=== PATIENT | female | born 1960 | race Caucasian/White ===

== ENCOUNTER 2023-05-24 06:00 | Day surgery (SDC) | payer OTHER, MEDICARE ==
[2023-05-20 09:27] VITALS: BP 118/82
[~2023-05-24] VITALS: Ht 162.6 cm; Wt 81.8 kg
[~2023-05-24 06:00] MED LIST: ARMOUR THYROID30 MG PO; ARMOUR THYROID60 MG PO; ASPIR 8181 MG PO; ATENOLOL50 MG PO; BENTYL20 MG PO; CARAFATE1 GM PO; DILAUDID2 MG PO; FISH OIL 1,2001 EACH PO; FLONASE ALLERG9.9 ML; HYDROCHLOROTHIA25 MG PO; METFORMIN HCL500 MG PO; MULTIPLE VITAM1 EAC1 PO; OMEPRAZOLE20 MG PO; PROMETHAZINE HC25 M1 PO; PROVENTIL HFA6.7 GM INH; RED YEAST RICE600 MG PO; SPIRONOLACTONE1 EACH PO; SPIRONOLACTONE50 MG PO; TYLENOL 8 HOUR650 MG PO; VALIUM5 MG PO; VITAMIN B-12500 MC1 PO; VITAMIN D250000 UNIT PO; VITAMIN E400 UNI4 PO
[2023-05-24 06:15] VITALS: BP 116/82
[2023-05-24] MEDS ORDERED: HYDROCHLOROTH12.5 MG PO (06:21)
[2023-05-24] MEDS ORDERED: SPIRONOLACTONE25 MG PO (06:22)
--- NOTE | 2023-05-24 08:44 | NUR ---
05/24/23 0844 Nuris French 0817- PT ARRIVES TO PACU, SEMI BYRD POSITION, AWAKE AND ANSWERING QUESTIONS. DENIES PAIN OR NAUSEA AT THIS TIME. ALL MONITORS APPLIED. 0825- PT C/O SOME NAUSEA, UNABLE TO PULL MEDICATIONS FROM PYXIS DUE TO NO ACCOUNT. PHARMACY CONTACTED AND ADMITTING. PT HAS NO OTHER COMPLAINTS. 0835- UNABLE TO PULL MEDICATION AFTER CONTACTING BOTH PHARMACY AND ADMITTING. PT REPORTS NAUSEA WORSENING. ALCOHOL SWAB PROVIDED, HOB ELEVATED AND EMESIS BAG. CONTACTED PHARMACY TO BRING MEDICATION TO PACU. 0843- PT REPORTS NAUSEA IS IMPROVING AFTER MEDICATION. PT HAS EQUAL STRENGTH TO BLE AND NORMAL SENSATION FOR HER BASELINE. WILL CONTINUE TO MONITOR AND ASSESS ABILITY TO STAND.
[2023-05-24] MEDS ORDERED: DILAUDID2 MG PO (08:46)
[2023-05-24] MEDS ORDERED: MOTRIN IB200 MG PO (08:46)
[2023-05-24] MEDS ORDERED: TYLENOL EXTRA500 MG PO (08:46)
[2023-05-24 09:36] VITALS: BP 122/74
--- NOTE | 2023-05-25 11:13 | OR ---
[facility] [address], [place] [address] Signed DATE OF OPERATION: 05/24/2023 SURGEON: Melody Way MD PREOPERATIVE DIAGNOSIS: Symptomatic perianal skin nodules. POSTOPERATIVE DIAGNOSES: 1. Symptomatic perianal skin nodules. 2. Low-grade anal stenosis. PROCEDURES: 1. Exam under anesthesia. 2. Anal dilation (digital). 3. Excision of perianal nodules and intra-anal nodules. ANESTHESIA: Spinal (saddle block), Fortunato Matthews, HEALTH TECHNICIAN HEARING and local 10 mL of 0.25% Marcaine with epinephrine. INDICATIONS: This 63-year-old white woman is a patient of Alfonso Patino. She underwent excision of the left forearm soft tissue mass by me in the past. She is noted to have perianal nodules, which were problematic to her. Examination shows them to be not typical of condylomata, but definitely symptomatic for her and causing a fair amount of perianal hygiene problems. She does not have true hemorrhoidal changes at this point. She does have several areas of skin with blanching suggestive of previous similar nodules either with involution or spontaneous loss. She is admitted at this time to undergo exam under anesthesia and excision of the nodules as appropriate. The risk of bleeding, infection, postoperative perianal pain, and other unforeseen complications was reviewed in detail. She understands and wished to proceed. FINDINGS: She did have anal narrowing and some hypertrophy of the perianal muscles. The nodules were at the anal verge dominantly. There were areas of blanched skin a few centimeters from the anal area itself. 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 These were excised and passed for Pathology. DESCRIPTION OF PROCEDURE: Electronically Signed By: MELODY WAY MD 05/25/23 1113 PATIENT NAME: MARKOS RAZO OPERATIVE REPORT DATE OF : 56 REPORT #: [id number] PHYSICIAN: MELODY WAY MD PCP: ALFONSO PATINO PAC REPORT IS CONFIDENTIAL AND NOT TO BE RELEASED WITHOUT AUTHORIZATION [facility] [address], [place] [address] Signed The patient was brought to the operating room after undergoing saddle block anesthetic and placed in a prone leticia-knife position. Buttocks were taped apart. She received preoperative antibiotics. Sequential compression device stockings, but heparin was not administered. Perianal preparation was undertaken with a Betadine based solution. Sterile draping was undertaken. Close examination showed the nodules to be suggestive though not diagnostic of condylomata what they may represent other abnormalities. Digital examination showed relative anal stenosis. The sphincter muscle was relatively narrow and easy cracking of dried anal mucosa was noted. Two-finger dilation was ultimately undertaken carefully, so as to avoid muscular disruption or anything of that sort. Excision of the perianal lesions was undertaken dominant with electrocautery. Ablation and simple excision was undertaken. Hemostasis was assured with electrocautery. A 10 mL of 0.25% Marcaine with epinephrine was injected locally. A rolled Gelfoam with bacitracin was applied and insinuated into the anal canal to assist with hemostasis and likely with some kyree-operative analgesia. A peripad was applied. She was returned to the supine position and taken to the recovery room in good condition, having suffered no known complication. MD ERIK Topete/KESHAWNL /[id number] cc: YANIRA Starr Copies: ~ Electronically Signed By: MELODY WAY MD 05/25/23 1113 PATIENT NAME: MARKOS RAZO OPERATIVE REPORT DATE OF : 56 REPORT #: [id number] PHYSICIAN: MELODY WAY MD PCP: ALFONSO PATINO PAC REPORT IS CONFIDENTIAL AND NOT TO BE RELEASED WITHOUT AUTHORIZATION
--- NOTE | 2023-05-25 15:36 | EKG ---
[facility] [address] [facility] [place], [place] [address] Signed Normal sinus rhythm Normal ECG No previous ECGs available Confirmed by JOSE TURNER MD ([id number]) on 05/25/2023 3:36:32 PM Electronically Signed By: JOSE TURNER 05/25/23 1536 PATIENT NAME: JERONIMO RAZOINE KWAME Electrocardiogram DATE OF : 56 PHYSICIAN: JOSE TURNER REPORT #: [id number] REPORT IS CONFIDENTIAL AND NOT TO BE RELEASED WITHOUT AUTHORIZATION
--- NOTE | 2023-05-28 17:29 | PATH ---
[facility] [address], [place] [address] Signed SPECIMEN(S): A PERIANAL SKIN LESIONS SPECIMEN SOURCE: A. PERIANAL SKIN LESIONS CLINICAL HISTORY: Excision of perianal skin tags. FINAL PATHOLOGIC DIAGNOSIS: Perianal skin lesions: - Squamous fibroepithelial polyps with reactive features, negative for high-grade dysplasia or malignancy. JVR:donya MICROSCOPIC EXAMINATION: Histologic sections of all submitted blocks are examined by light microscopy. These findings, together with the gross examination, support the pathologic diagnosis. GROSS DESCRIPTION: The specimen, labeled and designated "[place], perianal skin lesions," is received in formalin and consists of seven fragmented portions of cruz to red-brown skin/mucosa (0.3-1.8 cm in greatest dimension). The possible resection margins are inked blue and sectioned to reveal pink-cruz, soft cut surfaces. Lace Finisher sections are submitted in cassette (A1). VB (under the direct supervision of a pathologist) The Gross Description was prepared using a voice recognition system. The report was reviewed for accuracy; however, sound-alike word errors, addition and/or deletions may occur. If there is any question about this report, please contact Client Services. PERFORMING LABORATORY: Technical component was performed by [facility], [address] [place] [id number] (CLIA# [id number]). Professional interpretation was performed by [facility] [place], [address] [place] [phone] (CLIA#: [id number]). Diagnostician: Wally Braun MD Pathologist Electronically Signed 05/28/2023 PATIENT NAME: MARKOS MORELAND PATHOLOGY DATE OF : 56 REPORT #: [id number] PHYSICIAN: [facility] PCP: ALFONSO PATINO PAC REPORT IS CONFIDENTIAL AND NOT TO BE RELEASED WITHOUT AUTHORIZATION [address] [address] Signed Copies: ~ PATIENT NAME: MARKOS MORELAND PATHOLOGY DATE OF : 56 REPORT #: [id number] PHYSICIAN: [facility] PATHOLOG[facility] PCP: ALFONSO PATINO PAC REPORT IS CONFIDENTIAL AND NOT TO BE RELEASED WITHOUT AUTHORIZATION
== END 2023-05-24 09:10 | disposition home or self-care (01) ==
LOC: DS 06:00
PROVIDERS: ATTEND Surgery
PROC: 0DBQXZZ Excision of Anus, External Approach (ICD-10-PCS; principal; 2023-05-24 07:30)
DX: K62.1 Rectal polyp (principal); J45.909 Unspecified asthma, uncomplicated
CPT/HCPCS: 00400; 93005; 93010; J0690; J1790; J2001; J2250; J2704; J2765; J3010; J7121

== ENCOUNTER 2024-12-16 09:31 | Emergency (ER) | payer OTHER, MEDICARE ==
[~2024-12-16] VITALS: Ht 162.6 cm; Wt 82.0 kg
[~2024-12-16 09:31] MED LIST changes: +HYDROCHLOROTH12.5 MG PO; +MOTRIN IB200 MG PO; +SPIRONOLACTONE25 MG PO; +TYLENOL EXTRA500 MG PO
[2024-12-16 10:40] VITALS: BP 120/87
== END 2024-12-16 10:56 | disposition home or self-care (01) ==
LOC: ED 09:31
DX: S90.31XA Contusion of right foot, initial encounter (principal); K21.9 Gastro-esophageal reflux disease without esophagitis; I10 Essential (primary) hypertension; X58.XXXA Exposure to other specified factors, initial encounter; Z79.82 Long term (current) use of aspirin; Z79.51 Long term (current) use of inhaled steroids; Z79.84 Long term (current) use of oral hypoglycemic drugs; Z79.899 Other long term (current) drug therapy; Z91.048 Other nonmedicinal substance allergy status; Z88.6 Allergy status to analgesic agent; Z88.1 Allergy status to other antibiotic agents; Z88.5 Allergy status to narcotic agent; Z88.8 Allergy status to other drugs, medicaments and biological substances
CPT/HCPCS: 73630; 99283